=== PATIENT | male | born 1970 | race Caucasian/White ===

== ENCOUNTER 2017-02-02 12:52 | Inpatient (IN) | payer BC, OTHER ==
--- NOTE | 2017-02-02 14:45 | EDPHY ---
H & P Stated Complaint: Continued abdo pain, scheduled for MRI at 3pm. HPI/ROS: CHIEF COMPLAINT: Abdominal pain HISTORY OF PRESENT ILLNESS: The patient is a 46 y/o male complaining of constant right-sided abdominal pain and nausea for 2 days. The pain is sharp. The first time he had these symptoms was in November, 2 months ago. During this time he had abdominal pain , fever, and nausea which went away after 24 hours and was attributed by him to "food poisoning". Last Thursday, 9 days ago, he experienced abdominal pain which resolved with ibuprofen. He did see his PCP, Dr. Pascual today, who ordered an abdominal US and laboratory work. He last ate 2 saltine crackers this morning. Pain does not seem to be exacerbated by movement or by eating. However, he has had persistent nausea. He has been taking ibuprofen for pain relief but does not take NSAIDs on a regular basis. He denies diarrhea, constipation, blood in his stool. He has not had dysuria or flank pain. No recent fever. REVIEW OF SYSTEMS: A ten point review of systems was performed and is negative with the exception of the items mentioned in the HPI. Past medical history: Hypertension Past surgical history: Descending aortic aneurysm repair Bicuspid valve repair Family history: Denies Social history: Lives in [place] Works for [employer] General Appearance: Alert. Vital signs reviewed. Blood pressure 154/79. Eyes: Pupils equal and round, no conjunctival injection, no discharge. Anicteric. ENT, Mouth: Mucous membranes are moist, no oropharyngeal erythema or edema. Neck: No lymphadenopathy, supple. Respiratory: Lungs are clear to auscultation; no wheezes, rales, or rhonchi. Cardiovascular: Regular rate and rhythm; no murmur, rub, or gallop. Gastrointestinal: He reports RUQ pain, which I am unable to illicit. Abdomen is soft and nontender, no masses or organomegaly, bowel sounds normal. Skin: Warm and dry, no rashes on exposed skin, normal color. Back: Nontender to palpation over the thoracolumbar spine. No CVAT. Extremities: No lower extremity edema, no calf tenderness or swelling. Neurological: Alert and oriented. Moving all four extremities easily and equally. Psychiatric: Normal affect. - Personal History Current Tetanus Diphtheria and Acellular Pertussis (TDAP): Yes - Medical/Surgical History Hx Asthma: No Hx Chronic Respiratory Disease: No Hx Diabetes: No Hx Cardiac Disease: Yes Hx Renal Disease: No Hx Cirrhosis: No Hx Alcoholism: No Hx HIV/AIDS: No Hx Splenectomy or Spleen Trauma: No Other PMH: Thoracic anursym. HTN. Constitutional: Initial Vital Signs Temperature (C) 36.6 C 02/02/17 12:54 Heart Rate 60 02/02/17 12:54 Respiratory Rate 16 02/02/17 12:54 Blood Pressure 154/79 H 02/02/17 12:54 O2 Sat (%) 97 02/02/17 12:54 O2 Delivery Mode Room Air Allergies/Adverse Reactions: No Known Allergies Allergy (Unverified 06/21/12 07:10) Home Medications: Medication Instructions Recorded Lisinopril [Zestril 40 mg (*)] 40 mg PO DAILY 02/02/17 Metoprolol Succinate Xr [Toprol Xl 50 mg PO DAILY 02/02/17 50 mg (*)] Medical Decision Making - Diagnostics Imaging Results: Imaging Impressions Abdomen Ultrasound 02/02/17 14:56 Impression: 1. No cholelithiasis, biliary dilation, or free fluid. 2. No hydronephrosis. 3. Minimal hepatic steatosis. Findings discussed with Emergency Department physician, Nacny Cohen on 02/02, 15:49. Abdomen/Pelvis CT 02/02/17 15:47 Impression: 1. Gallbladder distention with pericholecystic stranding, suspicious for cholecystitis, although the gallbladder had a normal appearance on ultrasound performed immediately prior to the CT. 2. Additional findings as above. Findings discussed with Dr. Nancy Cohen on 02/02/2017 at 16:31. Attention: This CT examination is specifically designed to evaluate patients who are clinically suspected of having acute obstructive uropathy. This examination does not use radiographic contrast, and as such, provides only a limited evaluation of the abdomen, pelvis and retroperitoneum. If there is further clinical suspicion for pathological conditions other than obstructive uropathy, a complete CT evaluation of the abdomen and pelvis utilizing intravenous and oral contrast should be considered. Imaging: Discussed imaging studies w/ commercial real estate agent Radiologist, I viewed and interpreted images myself ED Course/Re-evaluation: The patient is a 46 y/o male presenting with right flank and RUQ pain. He did see his PCP, Dr. Pascual, who ordered an abdominal US and blood work. However, he has not had the imaging preformed but did have his blood drawn. There are no results from the blood work yet. On exam, I am unable to illicit the pain. 0.5mg IV Dilaudid administered. Re-evaluated at 3:45 p.m.. A IV pain medication has helped appreciably, however is still aware of some discomfort in the right upper quadrant. Spoke with radiologist, his right upper quadrant ultrasound is negative for any gallbladder problems. The pancreas is not visualized. His urine is positive for blood. Will obtain CT scan to assess for kidney stone. 1631: Spoke with radiologist, he reports the patient has signs of cholecystitis on CT scan even though the gallbladder had a normal appearance on the ultrasound. No evidence of ureterolithiasis. 1644: Consulted with Dr. Pérez, general surgeon, about the patient's imaging findings and symptoms. He agrees to admit this patient and would like a HIDA scan preformed. This could be acalculous cholecystitis. 1646: Reassessed patient and discussed plan for HIDA scan and admission; patient is comfortable with this plan. Abdomen remains soft, nontender. He does have an elevation of white blood cells. Bilirubin is elevated. AST 77. ALT normal. Lipase normal, this is not pancreatitis. Differential Diagnosis: Abdominal pain including but not limited to appendicitis, cholecystitis, gastritis, ureterolithiasis, and urinary tract infection. - Data Points Laboratory Results: Laboratory Results 02/02/17 14:48 02/02/17 02/02/17 14:48 14:48 Sodium 137 mEq/L mEq/L (134-144) Potassium 4.1 mEq/L mEq/L (3.5-5.2) Chloride 98 mEq/L mEq/L (97-110) Carbon Dioxide 21 mEq/l L mEq/l (22-31) Anion Gap 18 mEq/L H mEq/L (8-16) BUN 15 mg/dL mg/dL (7-23) Creatinine 1.0 mg/dL mg/dL (0.7-1.3) Estimated GFR > 60 Glucose 107 mg/dL H mg/dL (70-100) Calcium 9.6 mg/dL mg/dL (8.5-10.4) Urine Color YELLOW Urine Appearance CLEAR Urine pH 6.0 (5.0-7.5) Ur Specific [place] 1.025 (1.002-1.030) Urine Protein NEGATIVE (NEGATIVE) Urine Ketones 1+ H (NEGATIVE) Urine Blood 1+ H (NEGATIVE) Urine Nitrate NEGATIVE (NEGATIVE) Urine Bilirubin NEGATIVE (NEGATIVE) Urine Urobilinogen 2.0 EU H EU (0.2-1.0) Ur Leukocyte Esterase NEGATIVE (NEGATIVE) Urine RBC 5-10 /hpf H /hpf (0-3) Urine WBC 1-3 /hpf /hpf (0-3) Ur Epithelial Cells Not Reported Urine Mucus TRACE /lpf /lpf (NONE-1+) Urine Glucose NEGATIVE (NEGATIVE) Medications Given: Potassium Chloride/Dextrose/Sod Cl (D5w 1/2 Ns W/ 20 Kcl/L) 1,000 mls @ 125 mls /hr IV CONT ANASTASIA Stop: 08/01/17 17:14 Last Admin: 02/02/17 18:00 Dose: 1,000 mls Discontinued Medications Hydromorphone HCl (Dilaudid) 0.5 mg IVP EDNOW ONE Stop: 02/02/17 14:56 Last Admin: 02/02/17 15:01 Dose: 0.5 mg Ketorolac Tromethamine (Toradol) 30 mg IVP ONCE ONE Stop: 02/02/17 21:01 Last Admin: 02/02/17 20:52 Dose: 30 mg Departure - Departure Disposition: [facility] ([place], [place])s Inpatient Acute Clinical Impression: Cholecystitis Condition: Fair Report Scribed for: Nancy Cohen Report Scribed by: Alexa Jackman Date of Report: 02/02/17 Time of Report: 14:56 Physician Review and Approval Statement: 02/02/17 14:45 Portions of this note were transcribed by the medical anthropology director. I, Dr. Nancy Cohen, personally performed the history, physical exam, and medical decision- making; and confirmed the accuracy of the information in the transcribed note.
[2017-02-02] MEDS ORDERED: HYDROmorphONE/DILAUDID 1 MG/ML INJ IVP ONE (14:55)
[2017-02-02 15:29] LABS: ANION GAP 18 mEq/L (8-16); CALCIUM 9.6 mg/dL (8.5-10.4); CARBON DIOXIDE 21 mEq/l (22-31); CHLORIDE 98 mEq/L (97-110); GLOMERULAR FILTRATION RATE > 60; GLUCOSE 107 mg/dL (70-100); POTASSIUM 4.1 mEq/L (3.5-5.2); SODIUM 137 mEq/L (134-144)
[2017-02-02 15:30] LABS: COLOR YELLOW; LEUKOCYTE ESTERASE,URINE NEGATIVE (NEGATIVE); NITRITE,URINE NEGATIVE (NEGATIVE)
[2017-02-02 15:34] LABS: MUCUS TRACE /lpf (NONE-1+)
[2017-02-02] MEDS ORDERED: ONDANSETRON 4 MG/2 ML VIAL IVP PRN (17:03)
--- NOTE | 2017-02-02 17:41 | GHP ---
[f rep st] HISTORY AND PHYSICAL DATE OF ADMISSION: 02/02/2017 HISTORY OF PRESENT ILLNESS: The patient is a 46-year-old male, who presented to the emergency depart ment today with 2 days of waxing and waning, overall worsening right upper quadrant abdominal pain as sociated with nausea and emesis x1. He has also had some fevers and chills. This has happened twice in the last year and he thought it was due to food poisoning. He was feeling better yesterday so he ate some nachos which brought the pain back on. He denies a prior abdominal surgical history. He u ses ibuprofen when he has the pain but is not a regular ibuprofen user, and denies any history of ulc ers or gastritis. Since being in the emergency department, he has had an ultrasound of his right upper quadrant which s hows a normal gallbladder without stones. CT scan of the abdomen and pelvis, however, showed gallbla dder distention with rohit cholecystic stranding suspicious for cholecystitis. Labs showed an elevate d white blood cell count of 11.5, and mildly elevated LFTs with a total bilirubin of 1.7, unconjugate d bilirubin of 1.2, and an ALT of 77. Also patient reports no major problems or changes in his bowel movements. PAST MEDICAL HISTORY: Includes hypertension. PAST SURGICAL HISTORY: Includes descending aortic aneurysm repair with bicuspid valve repair. FAMILY HISTORY: Noncontributory. SOCIAL HISTORY: The patient lives in [place]. 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 He is and does have children. He is not a tobacco smoker. REVIEW OF SYSTEMS: A 10-point review of systems negative aside from the items mentioned in the HPI. EXAM: VITAL SIGNS: Temperature 36.6, blood pressure 154/79, respiratory rate 16, heart rate 60, oxy genation 97% on room air. GENERAL: Reveals a pleasant, well-developed, well-nourished, well-groomed , 46-year-old male, alert and oriented x3 and in no acute distress. HEENT: Normocephalic, atraumati c. Sclerae anicteric. CHEST: Clear to auscultation bilaterally. CARDIAC: Regular rate and rhythm . ABDOMEN: Soft with right upper quadrant tenderness. No guarding. EXTREMITIES: Warm, dry, witho ut edema. SKIN: Warm and dry. PSYCH: Normal mood and affect. RESULTS: Images from the patient's abdomen and pelvic CT and ultrasound were reviewed. Please see anneliese boyer for details. IMPRESSIONS: A 46-year-old male with right upper quadrant abdominal pain, possible acalculous cholec ystitis. PLAN: Plan will be to admit the patient for observation, hydration and supportive care. Dr. Beto chapa ould like to get a HIDA scan since his ultrasound and CT scan results conflict. We discussed the pos sibilities of laparoscopic cholecystectomy including the risks and options of this. Further plan to follow. Dr. Pérez will also see the patient this evening. /[id number]/MODL
[2017-02-02] MEDS: D5W 1/2 NS W/ 20 KCl/L 1,000 ML IV SCH (18:00)
[2017-02-02] MEDS ORDERED: KETOROLAC 30 MG/1 ML SDV IVP ONE (21:00)
--- NOTE | 2017-02-02 21:04 | SOAPPROG ---
EVITA Progress Note Assessment/Plan: Assessment: 46 male with possible acalculus cholecystitis/ much improved tonight us negative/ ct mildly suspicious/ lfts mildly elevated risks and options fully discussed Plan:hida in am/ probable lap alona 02/02/17 21:01 Objective: Vital Signs Temp Pulse Resp BP Pulse Ox 37.1 C 59 L 18 141/70 H 97 02/02/17 19:15 02/02/17 19:15 02/02/17 19:15 02/02/17 19:15 02/02/17 19:15 ICD10 Worksheet Patient Problems: Problems Problem Status Onset Cholecystitis Acute
[2017-02-03] MEDS: KETOROLAC 15 MG/1 ML SDV IVP SCH ×5 (02:54→23:11)
[2017-02-03] MEDS: D5W 1/2 NS W/ 20 KCl/L 1,000 ML IV SCH ×2 (02:54→14:21)
[2017-02-03 05:51] LABS: % IMMATURE GRANULYOCYTES 0.4 % (0.0-1.1); ABSOLUTE IMMATURE GRANULOCYTES 0.05 10^3/uL (0.00-0.10); ADD DIFF? NO; ADD MORPH? NO; ADD SCAN? NO; ATYPICAL LYMPHOCYTE FLAG 0 (0-99); FRAGMENT RBC FLAG 0 (0-99); HEMATOCRIT 38.5 % (40.0-51.0); HEMOGLOBIN 13.8 g/dL (13.7-17.5); LEFT SHIFT FLG 0 (0-99); LIPEMIA HEMOLYSIS FLAG 90 (0-99); MEAN CELL HEMOGLOBIN 31.4 pg (27.9-34.1); MEAN CELL HEMOGLOBIN CONCENTR. 35.8 g/dL (32.4-36.7); MEAN CELL VOLUME 87.5 fL (81.5-99.8); MEAN PLATELET VOLUME 9.9 fL (8.7-11.7); PLATELET CLUMPS FLAG 10 (0-99); PLATELET COUNT 159 10^3/uL (150-400); RED CELL DISTRIBUTION WIDTH 11.9 % (11.5-15.2)
[2017-02-03 06:06] LABS: ALANINE AMINOTRANSFERASE 87 IU/L (21-72); ALBUMIN 3.3 g/dL (3.5-5.0); ALKALINE PHOSPHATASE 63 IU/L (38-126); AMYLASE 32 IU/L (30-110); ANION GAP 8 mEq/L (8-16); ASPARTATE AMINOTRANSFERASE 55 IU/L (17-59); BILIRUBIN,TOTAL 1.8 mg/dL (0.1-1.4); BILIRUBIN-CONJUGATED 0.5 mg/dL (0.0-0.5); BILIRUBIN-UNCONJUGATED 1.3 mg/dL (0.0-1.1); CALCIUM 8.7 mg/dL (8.5-10.4); CARBON DIOXIDE 26 mEq/l (22-31); CHLORIDE 102 mEq/L (97-110); CREATININE 1.1 mg/dL (0.7-1.3); GLOMERULAR FILTRATION RATE > 60; GLUCOSE 107 mg/dL (70-100); SODIUM 136 mEq/L (134-144); TOTAL PROTEIN 5.9 g/dL (6.3-8.2)
[2017-02-03 06:21] LABS: INR 1.15 (0.83-1.16); PROTIME(PATIENT) 14.6 SEC (12.0-15.0)
--- NOTE | 2017-02-03 10:23 | ASMTCASEMG ---
Living Arrangements What is your living Answers: With Spouse arrangement? Who do you live with? Type Of Residence What kind of residence do Answers: House you live in? Discharge Plan Comments Coordination Status Comments Notes: Patient is a 46yo male who was admitted for worsening abdominal pain associated with nausea and emesis x1. Patient is being admitted for observation and assessment of possible acalculus cholecystitis. No therapies have been ordered. Patient is and most likely will d/c independently. CM is available if d/c needs arise. Date Signed: 02/03/2017 10:22 AM Electronically Signed By:Jory Quinones LCSW
--- NOTE | 2017-02-03 11:06 | SOAPPROG ---
SOAP Progress Note Assessment/Plan: Assessment/Plan: 46 Y M RUQ pain, N/V, fevers, chills. US normal. CT c pericholecystic stranding. No filling on HIDA. LFTs slightly elevated. Plan for lap alona today. Risks and options discussed last evening. Will readdress before surgery. Continue NPO. Continue Invanz. Consent in chart. 02/03/17 11:05 Objective: Vital Signs Temp Pulse Resp BP Pulse Ox 37.2 C 57 L 20 126/61 H 95 02/03/17 07:40 02/03/17 07:40 02/03/17 07:40 02/03/17 07:40 02/03/17 07:40 Laboratory Results 02/03/17 04:40 02/03/17 04:40 PT 14.6 SEC (12.0-15.0) 02/03/17 04:40 INR 1.15 (0.83-1.16) 02/03/17 04:40 ICD10 Worksheet Patient Problems: Problems Problem Status Onset Cholecystitis Acute
[2017-02-03] MEDS ORDERED: ERTAPENEM 1 GM VIAL IVP ONE (18:30)
--- NOTE | 2017-02-03 19:48 | SOAPPROG ---
EVITA Progress Note Assessment/Plan: Assessment: 46 male with possible acalculus cholecystitis/ much improved tonight us negative/ ct mildly suspicious/ lfts mildly elevated risks and options fully discussed Plan:hida in am/ probable lap alona 02/02/17 21:01 02/03/17 19:47 HIDA NONVIZ/ WILL PROCEED WITH LAP ALONA/ RISKS AND OPTIONS FULLY DISCUSSED AND HE WISHES TO PROCEED Objective: Vital Signs Temp Pulse Resp BP Pulse Ox 37.2 C 62 18 156/81 H 96 02/03/17 19:30 02/03/17 19:30 02/03/17 19:30 02/03/17 19:30 02/03/17 19:30 Laboratory Results 02/03/17 04:40 02/03/17 04:40 02/02/17 02/03/17 02/04/17 05:59 05:59 05:59 Intake Total 1200 Balance 1200 PT 14.6 SEC (12.0-15.0) 02/03/17 04:40 INR 1.15 (0.83-1.16) 02/03/17 04:40 ICD10 Worksheet Patient Problems: Problems Problem Status Onset Cholecystitis Acute
--- NOTE | 2017-02-03 20:12 | PDANEPAE ---
ANE History of Present Illness 46 yo M w acute cholecystitis here for lap alona ANE Past Medical History - Cardiovascular History Hx Hypertension: Yes Hx Arrhythmias: No Hx Chest Pain: No Hx CHF / Valvular Disease: Yes Cardiovascular History Comment: thoracic aortic aneurysm repair. bicuspid aortic valve - Pulmonary History Hx COPD: No Hx Asthma/Reactive Airway Disease: No Hx Oxygen in Use at Home: No Hx Sleep Apnea: No Sleep Apnea Screening Result - Last Documented: Negative - Endocrine History Hx Diabetes: No - Chronic Pain History Chronic Pain: No ANE Review of Systems Review of Systems: - Exercise capacity Exercise capacity: >=4 METS ANE Patient History - Allergies Allergies/Adverse Reactions: No Known Allergies Allergy (Unverified 06/21/12 07:10) - Home Medications Home medications: home medication list seen and reviewed Home Medications: Lisinopril [Zestril 40 mg (*)] 40 mg PO DAILY 02/02/17 [Last Taken 02/02/17] Metoprolol Succinate Xr [Toprol Xl 50 mg (*)] 50 mg PO DAILY 02/02/17 [Last Taken 02/02/17] - NPO status NPO Status: no food or drink >8 hours - Smoking Hx Smoking Status: Never smoked - Alcohol Use Alcohol Use: Occasionally - Family Anes Hx Family Anes Hx: none ANE Labs/Vital Signs - Labs Result Diagrams: 02/03/17 04:40 02/03/17 04:40 - Vital Signs Blood Pressure: 156/81 Heart Rate: 62 Respiratory Rate: 18 O2 Sat (%): 96 Height: 187.96 cm Weight: 114.5 kg ANE Physical Exam - Airway Neck exam: FROM Mallampati Score: Class 2 Mouth exam: normal dental/mouth exam, covarrubias - Pulmonary Pulmonary: no respiratory distress, clear to auscultation - Cardiovascular Cardiovascular: regular rate and rhythym, no murmur, rub, or gallop - ASA Status ASA Status: II ANE Anesthesia Plan Anesthesia Plan: general endotracheal anesthesia Regional Anesthesia: TAP block
[2017-02-03] MEDS ORDERED: MIDAZOLAM 2 MG/2 ML VIAL IVP ONE (20:13)
[2017-02-03] MEDS ORDERED: fentaNYL 100 MCG/2 ML INJ ONE ×2 (20:19→22:03)
[2017-02-03] MEDS ORDERED: PROPOFOL 200 MG/20 ML VIAL ONE ×2 (20:19)
[2017-02-03] MEDS ORDERED: MIDAZOLAM 2 MG/2 ML VIAL ONE (20:44)
[2017-02-03] MEDS ORDERED: LABETALOL HCL 5 MG/ML 20 ML MDV ONE (21:02)
[2017-02-03] MEDS ORDERED: BUPIVACAINE 0.5% 30 ML SDV ONE (21:06)
[2017-02-03] MEDS ORDERED: HEPARIN 1000 UNIT/1 ML MDV ONE (21:07)
[2017-02-03] MEDS ORDERED: ceFAZolin 1 GM/5 ML SYR ONE (21:08)
[2017-02-03] MEDS ORDERED: NALOXONE HCL 0.4 MG/ML INJ IVP PRN (21:53)
[2017-02-03] MEDS ORDERED: MEPERIDINE 25 MG/ML SYR IVP PRN (21:53)
[2017-02-03] MEDS ORDERED: HYDROmorphONE/DILAUDID 1 MG/ML INJ IVP PRN (21:53)
[2017-02-03] MEDS ORDERED: PROMETHAZINE HCL 25 MG/ML INJ IVP PRN (21:53)
[2017-02-03] MEDS ORDERED: HYDROCODONE/APAP 5/325 TAB PO PRN (21:53)
[2017-02-03] MEDS ORDERED: fentaNYL 100 MCG/2 ML INJ IVP PRN (21:53)
[2017-02-03] MEDS ORDERED: ACETAMINOPHEN 500 MG TAB PO PRN (21:53)
[2017-02-03] MEDS ORDERED: OXYCODONE/APAP 5/325 TAB PO PRN (21:53)
[2017-02-03] MEDS ORDERED: ONDANSETRON 4 MG/2 ML VIAL IVP PRN ×2 (21:53→22:17)
--- NOTE | 2017-02-03 22:14 | POSTOPPROG ---
Post Op Note Date of Operation: 02/03/17 Surgeon: Maico Pérez Anesthesiologist: CHANDRA Anesthesia: GET(General Endotracheal) Pre-op Diagnosis: ACUTE CHOLECYSTITIS Post-op Diagnosis: SAME Indication: PAIN, HYDROPS Procedure: LAP INA Findings: NECROTIC GB WITH PURULENCE AND HYDROPS Inf/Abcess present in the surg proc area at time of surgery?: Yes Depth: Organ Space EBL: Minimal Complications: 0 Specimen(s): GALLBLADDER
[2017-02-03] MEDS ORDERED: HYDROmorphone HCL/NS/PF 0.4 MG/2 ML SYR IVP PRN (22:17)
--- NOTE | 2017-02-03 22:22 | POSTANESTH ---
Post Anesthetic Evaluation Cardiovascular Status: Normal, Stable, Similar to Pre-Op Cond Respiratory Status: Normal, Stable, Similar to Pre-op Cond. Level of Consciousness/Mental Status: Can Participate in Eval, Alert and Oriented Pain Control: Adequate, Prn Tx Ordered Nausea/Vomiting Control: Adequate, Prn Tx Ordered Complications Possibly Related to Anesthesia: None Noted
[2017-02-03] MEDS ORDERED: D5W 1/2 NS W/ 20 KCl/L 1,000 ML IV SCH (22:30)
[2017-02-04] MEDS: HYDROmorphone HCL/NS/PF 0.4 MG/2 ML SYR IVP PRN ×3 (01:11→06:18)
[2017-02-04 05:53] LABS: % IMMATURE GRANULYOCYTES 0.5 % (0.0-1.1); ABSOLUTE IMMATURE GRANULOCYTES 0.05 10^3/uL (0.00-0.10); ADD DIFF? NO; ADD MORPH? NO; ADD SCAN? NO; ATYPICAL LYMPHOCYTE FLAG 0 (0-99); FRAGMENT RBC FLAG 0 (0-99); HEMOGLOBIN 14.3 g/dL (13.7-17.5); LEFT SHIFT FLG 60 (0-99); LIPEMIA HEMOLYSIS FLAG 90 (0-99); MEAN CELL HEMOGLOBIN 32.1 pg (27.9-34.1); MEAN CELL HEMOGLOBIN CONCENTR. 36.7 g/dL (32.4-36.7); MEAN CELL VOLUME 87.6 fL (81.5-99.8); MEAN PLATELET VOLUME 9.8 fL (8.7-11.7); PLATELET CLUMPS FLAG 0 (0-99); PLATELET COUNT 161 10^3/uL (150-400); RED BLOOD CELL COUNT 4.45 10^6/uL (4.40-6.38); RED CELL DISTRIBUTION WIDTH 11.9 % (11.5-15.2)
[2017-02-04 06:09] LABS: ALANINE AMINOTRANSFERASE 305 IU/L (21-72); ALBUMIN 3.3 g/dL (3.5-5.0); ALKALINE PHOSPHATASE 139 IU/L (38-126); AMYLASE < 30 IU/L (30-110); ANION GAP 11 mEq/L (8-16); ASPARTATE AMINOTRANSFERASE 211 IU/L (17-59); BILIRUBIN,TOTAL 3.6 mg/dL (0.1-1.4); BILIRUBIN-CONJUGATED 2.1 mg/dL (0.0-0.5); BILIRUBIN-UNCONJUGATED 1.5 mg/dL (0.0-1.1); CALCIUM 8.5 mg/dL (8.5-10.4); CARBON DIOXIDE 22 mEq/l (22-31); CHLORIDE 104 mEq/L (97-110); GLOMERULAR FILTRATION RATE > 60; GLUCOSE 175 mg/dL (70-100); POTASSIUM 4.4 mEq/L (3.5-5.2); SODIUM 137 mEq/L (134-144); TOTAL PROTEIN 5.7 g/dL (6.3-8.2)
[2017-02-04] MEDS: KETOROLAC 15 MG/1 ML SDV IVP SCH ×4 (06:18→23:20)
[2017-02-04] MEDS: METOPROLOL SUCCINATE XR 50 MG TAB PO SCH (08:08)
[2017-02-04] MEDS: OXYCODONE/APAP 5/325 TAB PO PRN ×3 (08:08→21:57)
--- NOTE | 2017-02-04 10:32 | SOAPPROG ---
SOAP Progress Note Assessment/Plan: Assessment/Plan: 46 Y M RUQ pain, N/V, fevers, chills. s/p lap Anne-Marie for acute acalculous cholecystitis. POD#1. Per Dr. Pérez, gallbladder was necrotic with purulence. Will continue Invanz. LFTs increased this am. Patient clinically well--pain controlled, no N/V, eating fine. Doubt leak or retained stone. Will repeat labs in am. If better, consider d/c tomorrow after dose of Invanz. Plan for PO abx on d/c. S: see above. O: alert, nad +scleral icterus no wob rrr abd soft, inc cdi, +BS 02/04/17 10:30 Objective: Vital Signs Temp Pulse Resp BP Pulse Ox 37.1 C 72 16 118/64 91 L 02/04/17 07:48 02/04/17 07:48 02/04/17 07:48 02/04/17 07:48 02/04/17 07:48 Microbiology 02/03/17 22:03 Gram Stain - Final Gallbladder - Swab Laboratory Results 02/04/17 05:15 02/04/17 05:15 02/03/17 02/04/17 02/05/17 05:59 05:59 05:59 Intake Total 1800 Output Total 5 Balance 1795 PT 14.6 SEC (12.0-15.0) 02/03/17 04:40 INR 1.15 (0.83-1.16) 02/03/17 04:40 ICD10 Worksheet Patient Problems: Problems Problem Status Onset Cholecystitis Acute
[2017-02-04] MEDS: ERTAPENEM 1 GM VIAL IVP SCH (12:00)
[2017-02-04] MEDS: LISINOPRIL 40 MG TAB PO SCH (12:05)
[2017-02-04 19:29] VITALS: RESP 16
[2017-02-05] MEDS: OXYCODONE/APAP 5/325 TAB PO PRN ×2 (05:19→15:42)
[2017-02-05] MEDS: KETOROLAC 15 MG/1 ML SDV IVP SCH ×2 (05:21→12:42)
[2017-02-05 06:02] LABS: ALBUMIN 3.4 g/dL (3.5-5.0); BILIRUBIN,TOTAL 2.8 mg/dL (0.1-1.4); BILIRUBIN-CONJUGATED 1.5 mg/dL (0.0-0.5); BILIRUBIN-UNCONJUGATED 1.3 mg/dL (0.0-1.1)
[2017-02-05] MEDS ORDERED: GADOBUTROL 10 ML VIAL IVP ONE ×2 (09:10→09:14)
[2017-02-05] MEDS: METOPROLOL SUCCINATE XR 50 MG TAB PO SCH (09:16)
[2017-02-05] MEDS: LISINOPRIL 40 MG TAB PO SCH (09:20)
[2017-02-05] MEDS: ERTAPENEM 1 GM VIAL IVP SCH (09:21)
[2017-02-05] MEDS ORDERED: LORazepam 2 MG/ML INJ IVP ONE (09:30)
--- NOTE | 2017-02-05 09:49 | SOAPPROG ---
SOAP Progress Note Assessment/Plan: Assessment: 46yo male s/p lap alona tolerating regular diet, pain control improving PE nonjaundiced abd soft nontender to palpation LFT improved slightly Plan: MRCP, if negative possibly home today on oral ABX given purulence of GB 02/05/17 09:46 Objective: Vital Signs Temp Pulse Resp BP Pulse Ox 36.9 C 54 L 16 111/62 94 02/05/17 07:45 02/05/17 07:45 02/05/17 07:45 02/05/17 07:45 02/05/17 07:45 PT 14.6 SEC (12.0-15.0) 02/03/17 04:40 INR 1.15 (0.83-1.16) 02/03/17 04:40 ICD10 Worksheet Patient Problems: Problems Problem Status Onset Cholecystitis Acute
[2017-02-05 11:39] VITALS: BP 108/65; PULSE 58; TEMP 98.2; O2SAT 95
--- NOTE | 2017-02-05 17:23 | ASDISCHSUM ---
Discharge Information Plan Status:Home with No Needs Medically Cleared to Leave: Discharge Date:02/05/2017 04:00 PM CM D/C Disposition:Home, Routine, Self-Care ADT D/C Disposition:Home, Routine, Self-Care Projected Discharge Date:02/05/2017 04:00 PM Transportation at D/C:Family Discharge Delay Reason: Follow-Up Date:02/05/2017 04:00 PM Discharge Slot: Final Diagnosis: Placement Information Patient Contact Information Contact Name:KE Relationship: Address:[address] Work Phone: [facility] Phone: [facility]/Zip Code:[place] [address] Email: Financial Information Financial Class:HMO and PPO Plans Primary Plan Desc: OUT OF STATE PPO Primary Plan Number:[id number] Secondary Plan Desc: Secondary Plan Number: Assessment Information [facility] Initial CM Assessment Living Arrangements What is your living Answers: With Spouse arrangement? Who do you live with? Type Of Residence What kind of residence do Answers: House you live in? Discharge Plan Comments Coordination Status Comments Notes: Patient is a 46yo male who was admitted for worsening abdominal pain associated with nausea and emesis x1. Patient is being admitted for observation and assessment of possible acalculus cholecystitis. No therapies have been ordered. Patient is and most likely will d/c independently. CM is available if d/c needs arise. Date Signed: 02/03/2017 10:22 AM Electronically Signed By:Jory Quinones LCSW Intervention Information
== END 2017-02-05 16:00 | disposition home or self-care (01) | DRG 419 ==
LOC: F3E 17:53 → OBSVTOIN 02-04 12:48
PROVIDERS: ADMIT Surgery; ATTEND Surgery
PROC: 0FT44ZZ Resection of Gallbladder, Percutaneous Endoscopic Approach (ICD-10-PCS; principal; 2017-02-04)
DX: K81.0 Acute cholecystitis (principal); I10 Essential (primary) hypertension
CPT/HCPCS: 96374; A9537; A9585; G0378; J1170; J1335; J1885; J2060; J2250; J2405; J2704; J3010; J3490

== ENCOUNTER → 2018-01-12 | Outpatient (CLI) | payer BC ==
[~2018-01-12] MED LIST: IOPAMIDOL (ISOVUE 370) 100 ML BTL IV ONE
== END ==
LOC: FIMAGING 09:32
PROVIDERS: ATTEND Internal Medicine Cardiovascular Disease
DX: Z09 Encounter for follow-up examination after completed treatment for conditions other than malignant neoplasm (principal); Z98.890 Other specified postprocedural states; Z86.79 Personal history of other diseases of the circulatory system
CPT/HCPCS: Q9967